=== PATIENT | male | born 1985 | race African-American/Black ===

== ENCOUNTER 2022-10-05 22:11 | Outpatient (CLI) | payer MEDICARE, SELFPAY | END 2022-10-05 22:12 | disposition home or self-care (01) | LOC: AMB 11-01 10:05 | PROVIDERS: Visit Provider Family Medicine | DX: F10.129 Alcohol abuse with intoxication, unspecified (principal); R41.82 Altered mental status, unspecified | CPT/HCPCS: A0425; A0429 ==